=== PATIENT | female | born 1960 | race Caucasian/White ===

== ENCOUNTER 2018-05-02 13:24 | Outpatient (CLI) | payer BC, MEDICARE ==
[~2018-05-02 13:24] MED LIST: Gadobenate Dimeglumine 529 MG/1 ML (20ML VIAL) ONE
--- NOTE | 2018-05-02 15:37 | RAD ---
LUMBAR SPINE SERIES FOUR VIEWS WITH FLEXION AND EXTENSION: History: Post op, back and right leg pain. FINDINGS: There are bilateral pedicle screws at the L5-S1. Markers of the disc implants are within the confines of that disc level. There is a minimal spondylolisthesis of L5 on S1 not changed significantly betwe en the flexion, neutral, or extension views. The remainder of the disc spaces are all fairly well pre served. IMPRESSION: Post-operative changes of the spine. POS: [facility]
--- NOTE | 2018-05-02 16:25 | MRI ---
MR OF THE LUMBAR SPINE WITH AND WITHOUT CONTRAST: 05/02/18 INDICATION: History of lumbar disc degeneration and right leg radiculopathy. CONTRAST: 20 mL of Multihance. COMPARISON: MRI lumbar spine dated 10/19/11 and radiographs of the lumbar spine dated 05/02/18. FINDINGS: There is stable postsurgical changes of posterior lumbar interbody fusion at L5-S1. There is stable m ild grade I anterolisthesis of L5 on S1. Small Tarlov cysts are seen at S3. Conus seen to terminate a t L1. Bone marrow signal intensity appears within normal limits. At L5-S1, there is no definite central canal or neural foraminal narrowing. At the L4-5 level, there is mild facet joint degenerative change and mild broad based bulge producing mild neural foraminal encroachment but no definite impingement. At L3-4, there is a broad based bulge with a superimposed right paracentral protrusion but no appreci able central canal or neural foraminal narrowing. At L2-3, there is no appreciable central canal or neural foraminal narrowing. At L1-2, there is a broad based bulge but no appreciable central canal or neural foraminal narrowing. At T12-L1, there is no appreciable central canal or neural foraminal narrowing. No definite abnormal enhancement is seen on the postcontrast series. IMPRESSION: 1. Postoperative changes at L5-S1 appears stable to the prior exam. 2. Mild neural foraminal narrowing seen at L4-5. POS: [facility]
== END 2018-05-02 13:25 | disposition home or self-care (01) ==
LOC: TBSIIMAG 13:24
PROVIDERS: ATTEND Neurological Surgery
DX: M51.36 Other intervertebral disc degeneration, lumbar region (principal); M48.061 Spinal stenosis, lumbar region without neurogenic claudication; Z98.890 Other specified postprocedural states
CPT/HCPCS: 72110; 72158; A9577